=== PATIENT | male | born 1945 | race Hispanic/Latino ===

== ENCOUNTER 2018-02-18 18:39 | Emergency (ER) | payer MEDICARE ==
[~2018-02-18] VITALS: Ht 167.6 cm; Wt 81.6 kg
[~2018-02-18 18:39] MED LIST: Z.0.JALYN 0.5-0.41 E PO
== END 2018-02-18 22:13 | disposition short-term general hospital (02) ==
LOC: ER 18:39
DX: R31.9 Hematuria, unspecified (principal)

== ENCOUNTER 2018-03-27 06:23 | Inpatient (IN) | payer MEDICARE ==
[2018-03-26 16:39] LABS: BASOPHILS # (AUTO) 0.1 (0.0-0.1); BASOPHILS % 0.9 % (0.0-1.0); EOSINOPHILS # (AUTO) 0.3 (0.0-0.4); EOSINOPHILS % 2.8 % (0.0-6.0); HEMOGLOBIN 12.7 g/dL (14.0-18.0); LYMPHOCYTES # (AUTO) 2.2 (1.0-3.2); LYMPHOCYTES % 23.8 % (18.0-39.1); MEAN CORPUSCULAR HEMOGLOBIN 30.8 pg (28-32); MEAN CORPUSCULAR HGB CONC 35.3 g/dL (31-35); MEAN CORPUSCULAR VOLUME 87.4 fL (81-99); MONOCYTES # (AUTO) 0.7 (0.2-0.8); NEUTROPHILS # (AUTO) 5.9 (2.1-6.9); NEUTROPHILS % 64.3 % (38.7-80.0); PLATELET COUNT 201 x10e3/uL (140-360); RED BLOOD COUNT 4.12 x10e6/uL (4.3-5.7); RED CELL DISTRIBUTION WIDTH 13.6 % (11.7-14.4)
[2018-03-26 16:51] LABS: ANION GAP 12.8 mmol/L (8-16); BLOOD UREA NITROGEN 16 mg/dL (7-26); BUN/CREATININE RATIO 15 (6-25); CALCIUM 9.1 mg/dL (8.4-10.2); CARBON DIOXIDE 20 mmol/L (22-29); CHLORIDE 107 mmol/L (98-107); CREATININE, SERUM 1.04 mg/dL (0.72-1.25); EST GLOMERULAR FILTRATION RATE > 60 ML/MIN (60-); GLUCOSE 98 mg/dL (74-118); POTASSIUM 3.8 mmol/L (3.5-5.1); SODIUM 136 mmol/L (136-145)
--- NOTE | 2018-03-26 17:18 | Diagnostic Imaging Report ---
PROCEDURE: Frontal and lateral views of the chest. COMPARISON: Patients [facility], DX, RIBS BILAT W/CXR, 06/25/2015, 12:12. Patients [facility], , CHEST SINGLE (PORTABLE), 05/01/2012, 7:03. INDICATIONS: PRE OP PROSTATE SURGERY FINDINGS: Lines/tubes: None. Lungs: The lungs are well inflated and clear. There is no evidence of pneumonia or pulmonary edema. Pleura: There is no pleural effusion or pneumothorax. Heart and mediastinum: The heart and the mediastinum are normal. Bones: No acute bony abnormality. IMPRESSION: 1. No acute cardiopulmonary abnormalities. Beka Kothari M.D. Dictated by: Beka Kothari M.D. on 03/26/2018 at 17:23 Electronically approved by: Beka Kothari M.D. on 03/26/2018 at 17:23
[~2018-03-27] VITALS: Ht 167.6 cm; Wt 85.3 kg
[~2018-03-27 06:23] MED LIST changes: +ALFUZOSIN HCL10 MG; +FINASTERIDE5 MG PO; +LEVOTHYROXINE50 MCG PO; +LISINOPRIL10 MG PO; +METOPROLOL SUCC25 MG; +METOPROLOL SUCC25 MG PO; +SIMVASTATIN20 MG PO; +TAMSULOSIN HCL0.4 MG PO
[2018-03-27] MEDS ORDERED: GENTAMICIN 80MG/NS 100 ML 200 ML IV ONE (06:48)
[2018-03-27] MEDS ORDERED: CEFTRIAXONE SOD 1 GM VIAL ONE (06:48)
[2018-03-27] MEDS ORDERED: IOPAMIDOL 300MG/ML 50ML INFUS..BTL IV ONE (07:58)
[2018-03-27] MEDS ORDERED: BELLADONNA/OPIUM 60 MG SUPP PR ONE (07:58)
--- NOTE | 2018-03-27 09:35 | Diagnostic Imaging Report ---
PROCEDURE:X-RAY ABDOMEN - KUB COMPARISON:None. INDICATIONS:PREOPERATIVE XRAY FOR PROSTATE SURGERY FINDINGS: There are no dilated loops of bowel to suggest obstruction. There are no masses or abnormal calcifications. There is no evidence of free air. No acute osseous abnormalities are present. Mild degenerative changes of the spine. No obvious lytic or blastic process. CONCLUSION: No acute abdominal abnormality. Nagi Edgar D.O. Dictated by: Nagi Edgar D.O. on 03/27/2018 at 8:40 Electronically approved by: Nagi Edgar D.O. on 03/27/2018 at 8:40
[2018-03-27] MEDS ORDERED: ACETAMINOPHEN 1000 MG/100 ML IV PRN (10:30)
[2018-03-27] MEDS ORDERED: DIPHENHYDRAMINE HCL 25 MG CAP PO PRN (10:30)
[2018-03-27] MEDS ORDERED: NALOXONE HCL INJ 0.4 MG/ML AMP IV PRN (10:30)
[2018-03-27] MEDS ORDERED: DIPHENHYDRAMINE HCL INJ 50 MG/ML VIAL IM PRN (10:30)
[2018-03-27] MEDS ORDERED: MORPHINE SULFATE 1 MG/ML 30ML PCA IV PRN (10:30)
[2018-03-27] MEDS ORDERED: FENTANYL CITRATE/PF 100MCG/2 ML INJ ONE ×2 (10:42→17:41)
[2018-03-27 11:51] LABS: BASOPHILS % 0.3 % (0.0-1.0); EOSINOPHILS # (AUTO) 0.1 (0.0-0.4); EOSINOPHILS % 0.3 % (0.0-6.0); HEMATOCRIT 35.5 % (38.2-49.6); LYMPHOCYTES # (AUTO) 1.3 (1.0-3.2); LYMPHOCYTES % 8.8 % (18.0-39.1); MEAN CORPUSCULAR HEMOGLOBIN 30.7 pg (28-32); MEAN CORPUSCULAR HGB CONC 33.8 g/dL (31-35); MEAN CORPUSCULAR VOLUME 90.8 fL (81-99); MONOCYTES # (AUTO) 0.2 (0.2-0.8); MONOCYTES % 1.4 % (4.4-11.3); NEUTROPHILS # (AUTO) 13.1 (2.1-6.9); NEUTROPHILS % 88.7 % (38.7-80.0); PLATELET COUNT 187 x10e3/uL (140-360); RED BLOOD COUNT 3.91 x10e6/uL (4.3-5.7); RED CELL DISTRIBUTION WIDTH 13.7 % (11.7-14.4)
[2018-03-27] MEDS ORDERED: MORPHINE SULFATE 1 MG/ML 30ML PCA ONE (12:46)
[2018-03-27] MEDS: D5.45%NS/KCL 20MEQ 1,000 ML IV SCH ×3 (14:14→23:06)
[2018-03-27] MEDS: LEVOFLOXACIN 500MG/D5W 100ML 100 ML IV SCH (14:14)
[2018-03-27] MEDS ORDERED: PHENAZOPYRIDINE HCL 100 MG TAB PO PRN (15:30)
[2018-03-27] MEDS ORDERED: ACETAMINOPHEN/CODEINE 300MG - 30MG TAB PO PRN (15:30)
[2018-03-27 15:39] VITALS: BP 101/60
[2018-03-27 16:00] VITALS: BP 95/59
[2018-03-27] MEDS: DOCUSATE SODIUM 100 MG CAP PO SCH (16:38)
[2018-03-27] MEDS ORDERED: ONDANSETRON HCL INJ 2 MG/ML VIAL ONE (17:37)
[2018-03-27] MEDS ORDERED: EPHEDRINE SULFATE INJ 50 MG/10 ML SYR ONE (17:37)
[2018-03-27] MEDS ORDERED: LIDOCAINE HCL 2% LOCAL INJ 5 ML SDV VIAL INJ ONE (17:37)
[2018-03-27] MEDS ORDERED: DEXAMETHASONE SOD PHOS INJ 4 MG/ML VIAL ONE (17:37)
[2018-03-27] MEDS ORDERED: PROPOFOL IV EMULSION 10 MG/ML 20 ML VIAL ONE (17:37)
[2018-03-27] MEDS ORDERED: SEVOFLURANE INHAL SOLN 250 ML PEN BTL ONE (17:37)
[2018-03-27] MEDS ORDERED: MIDAZOLAM HCL 2 MG/2 ML VIAL ONE (17:41)
[2018-03-27 20:00] VITALS: BP 90/54
[2018-03-27 20:05] VITALS: BP 90/54
[2018-03-27] MEDS: TAMSULOSIN HCL 0.4 MG CAP PO SCH (21:12)
[2018-03-27] MEDS: SIMVASTATIN 20 MG TAB PO SCH (21:12)
[2018-03-28] VITALS: BP 87/52
[2018-03-28 04:00] VITALS: BP 87/54
[2018-03-28 04:36] LABS: BASOPHILS # (AUTO) 0.1 (0.0-0.1); BASOPHILS % 0.3 % (0.0-1.0); EOSINOPHILS # (AUTO) 0.2 (0.0-0.4); HEMATOCRIT 26.1 % (38.2-49.6); HEMOGLOBIN 8.9 g/dL (14.0-18.0); LYMPHOCYTES # (AUTO) 1.2 (1.0-3.2); LYMPHOCYTES % 7.5 % (18.0-39.1); MEAN CORPUSCULAR HEMOGLOBIN 30.6 pg (28-32); MEAN CORPUSCULAR HGB CONC 34.1 g/dL (31-35); MEAN CORPUSCULAR VOLUME 89.7 fL (81-99); MONOCYTES # (AUTO) 0.9 (0.2-0.8); MONOCYTES % 5.5 % (4.4-11.3); NEUTROPHILS % 85.2 % (38.7-80.0); PLATELET COUNT 188 x10e3/uL (140-360); RED BLOOD COUNT 2.91 x10e6/uL (4.3-5.7); RED CELL DISTRIBUTION WIDTH 13.9 % (11.7-14.4)
[2018-03-28 05:01] LABS: ANION GAP 10.5 mmol/L (8-16); BLOOD UREA NITROGEN 15 mg/dL (7-26); BUN/CREATININE RATIO 15 (6-25); CARBON DIOXIDE 21 mmol/L (22-29); CHLORIDE 109 mmol/L (98-107); CREATININE, SERUM 1.01 mg/dL (0.72-1.25); EST GLOMERULAR FILTRATION RATE > 60 ML/MIN (60-); GLUCOSE 203 mg/dL (74-118); POTASSIUM 4.5 mmol/L (3.5-5.1); SODIUM 136 mmol/L (136-145)
[2018-03-28] MEDS: LEVOTHYROXINE SODIUM 50 MCG TAB PO SCH (06:20)
[2018-03-28 08:26] VITALS: BP 124/58
[2018-03-28] MEDS ORDERED: LISINOPRIL 10 MG TAB PO SCH (09:00)
[2018-03-28] MEDS: METOPROLOL SUCCINATE 25 MG TAB XL PO SCH (09:00)
[2018-03-28] MEDS ORDERED: LISINOPRIL 20 MG TAB PO SCH (09:00)
[2018-03-28] MEDS: D5.45%NS/KCL 20MEQ 1,000 ML IV SCH ×2 (09:23→15:30)
[2018-03-28] MEDS: FINASTERIDE 5 MG TAB PO SCH (09:23)
[2018-03-28] MEDS: DOCUSATE SODIUM 100 MG CAP PO SCH ×2 (09:23→16:31)
[2018-03-28] MEDS: LEVOFLOXACIN 500MG/D5W 100ML 100 ML IV SCH (09:24)
--- NOTE | 2018-03-28 13:23 | History and Physical ---
CHIEF COMPLAINT: Status post TURP and medical management. HPI: This is a 72-year-old male with known history of hypertension and BPH, comes in for an elective TURP procedure that was performed by Dr. Yin yesterday, 03/27/2018. Patient is currently on continuous bladder irrigation, currently doing well with no other complaints. His labs have been stable. His hemoglobin has dropped to 8.9 today, on admission it was 12.7. Patient was evaluated at bedside on the medical floor, currently doing well with no other complaints. Denies any chest pain, palpitation, nausea or vomiting. He is currently on IV antibiotics. Vital signs stable when I evaluated him. REVIEW OF SYSTEMS: Pertinent positive: Status post TURP. Pertinent negative: Denies any chest pain, palpitations, nausea, vomiting, diarrhea, dysuria, hematuria. frequency, urgency, lightheadedness, dizziness, abdominal pain, headache, shortness of breath, fever, cough, congestion or any other complaints. The rest of the 14-point review of systems have been reviewed with the patient and are negative. ALLERGIES: NO KNOWN DRUG ALLERGIES. HOME MEDICATIONS: Lisinopril 20 mg daily, finasteride 5 mg daily, mcg daily, Toprol XL 25 mg daily, simvastatin 20 mg daily, tamsulosin 0.4 mg daily. PAST MEDICAL HISTORY: He has BPH, hypertension, hypothyroidism. SURGICAL HISTORY: Status post TURP. FAMILY HISTORY: Hypertension and diabetes. SOCIAL HISTORY: No drugs, no alcohol, does not smoke. Good social support. VITAL SIGNS: Temperature is 96.6, pulse 75, respiratory rate is 20, blood pressure 124/58, pulse ox 99% on room air. LAB FINDINGS: White count 16.4, hemoglobin is 8.9, hematocrit is 26.9. Platelets of 188. Chemistry: Sodium 136, potassium 4.5, chloride 109, bicarb 21, anion gap 10, BUN 15, creatinine is 1. Glucose 203. Calcium is 8, magnesium 1.7. IMAGING STUDIES: Chest x-ray negative. Abdominal x-ray negative. MICROBIOLOGY: None. PHYSICAL EXAM GENERAL: Not in acute distress. Alert and oriented times 3. Cooperative with exam. HEENT: Head normocephalic, atraumatic. Eyes, pupils equal, round, and reactive to light bilaterally. Extraocular movements intact bilaterally. NECK: Supple. Good range of motion throughout. No evidence of any erythema or exudates in the posterior pharynx. Has poor dentition. PULMONARY: Clear to auscultation bilaterally. No wheezing, no rales, no rhonchi, no crackles appreciated. CARDIOVASCULAR: Positive S1, S2. No murmurs, rubs or gallops appreciated. ABDOMEN: Soft, nondistended, nontender to palpation. Bowel sounds present. MUSCULOSKELETAL: Strength is 5/5 throughout. No evidence of any muscle strength deficits on examination. No weakness appreciated. NEUROLOGIC: Cranial nerves II through XII grossly intact. No evidence of any neurological deficit on exam. SKIN: Intact. Warm to touch. Good cap refill. PSYCHIATRIC: Normal affect and mood. EXTREMITIES: No edema. Good range of motion throughout. IMPRESSION 1. Benign prostatic hypertrophy status post transurethral resection of prostate performed on 03/27/2018. 2. Hypertension. 3. Leukocytosis. 4. Hypothyroidism. 5. Prophylaxis. 6. Anemia secondary to transurethral resection of prostate. PLAN: At this time, patient will continue with CBIs. Urology is following. Monitor H and H. Currently, hemoglobin is 8.9. We will get a.m. labs. In relation to his blood pressure, current blood pressure was low. We are going to hold the lisinopril but continue the beta tonny because I am not sure if the patient has some history of atrial fibrillation or atrial flutter but there is no report in the HPI nor the patient. His white count is elevated, could be status post TURP, may be reactive. He is currently on IV antibiotics and we will continue with Levaquin for now and monitor closely. We will resume levothyroxine for hypothyroidism. SCDs for now for prophylaxis as he currently has some hematuria from the TURP. Otherwise, we will continue same plan of care and resume same home medications. Job#: [id number]
[2018-03-28 13:40] VITALS: BP 122/58
[2018-03-28 16:29] VITALS: BP 119/57
[2018-03-28 20:00] VITALS: BP 120/70
[2018-03-28] MEDS: TAMSULOSIN HCL 0.4 MG CAP PO SCH (21:13)
[2018-03-28] MEDS: SIMVASTATIN 20 MG TAB PO SCH (21:13)
[2018-03-29] VITALS (8 sets, daily range): BP systolic 114–132; BP diastolic 57–89
[2018-03-29] MEDS: D5.45%NS/KCL 20MEQ 1,000 ML IV SCH ×2 (02:24→08:27)
[2018-03-29 04:29] LABS: BASOPHILS # (AUTO) 0.1 (0.0-0.1); BASOPHILS % 0.7 % (0.0-1.0); EOSINOPHILS # (AUTO) 0.5 (0.0-0.4); EOSINOPHILS % 4.8 % (0.0-6.0); HEMATOCRIT 26.5 % (38.2-49.6); HEMOGLOBIN 8.8 g/dL (14.0-18.0); LYMPHOCYTES # (AUTO) 2.5 (1.0-3.2); LYMPHOCYTES % 22.4 % (18.0-39.1); MEAN CORPUSCULAR HEMOGLOBIN 30.1 pg (28-32); MEAN CORPUSCULAR HGB CONC 33.2 g/dL (31-35); MEAN CORPUSCULAR VOLUME 90.8 fL (81-99); MONOCYTES # (AUTO) 0.7 (0.2-0.8); MONOCYTES % 6.2 % (4.4-11.3); NEUTROPHILS # (AUTO) 7.2 (2.1-6.9); NEUTROPHILS % 65.5 % (38.7-80.0); PLATELET COUNT 178 x10e3/uL (140-360); RED BLOOD COUNT 2.92 x10e6/uL (4.3-5.7); RED CELL DISTRIBUTION WIDTH 14.2 % (11.7-14.4)
[2018-03-29 04:51] LABS: ANION GAP 10.4 mmol/L (8-16); BLOOD UREA NITROGEN 10 mg/dL (7-26); BUN/CREATININE RATIO 11 (6-25); CALCIUM 8.2 mg/dL (8.4-10.2); CARBON DIOXIDE 24 mmol/L (22-29); CHLORIDE 113 mmol/L (98-107); CREATININE, SERUM 0.89 mg/dL (0.72-1.25); EST GLOMERULAR FILTRATION RATE > 60 ML/MIN (60-); GLUCOSE 126 mg/dL (74-118); POTASSIUM 4.4 mmol/L (3.5-5.1); SODIUM 143 mmol/L (136-145)
[2018-03-29] MEDS: LEVOTHYROXINE SODIUM 50 MCG TAB PO SCH (06:49)
[2018-03-29] MEDS: METOPROLOL SUCCINATE 25 MG TAB XL PO SCH (10:28)
[2018-03-29] MEDS: FINASTERIDE 5 MG TAB PO SCH (10:28)
[2018-03-29] MEDS: LEVOFLOXACIN 500MG/D5W 100ML 100 ML IV SCH (10:28)
[2018-03-29] MEDS: DOCUSATE SODIUM 100 MG CAP PO SCH ×2 (10:28→17:59)
[2018-03-29] MEDS: TAMSULOSIN HCL 0.4 MG CAP PO SCH (21:43)
[2018-03-29] MEDS: SIMVASTATIN 20 MG TAB PO SCH (21:43)
[2018-03-30] VITALS (7 sets, daily range): BP systolic 118–135; BP diastolic 64–76
[2018-03-30 06:06] LABS: BASOPHILS # (AUTO) 0.1 (0.0-0.1); BASOPHILS % 0.6 % (0.0-1.0); EOSINOPHILS # (AUTO) 0.5 (0.0-0.4); EOSINOPHILS % 4.7 % (0.0-6.0); HEMATOCRIT 26.4 % (38.2-49.6); HEMOGLOBIN 8.8 g/dL (14.0-18.0); LYMPHOCYTES # (AUTO) 2.3 (1.0-3.2); LYMPHOCYTES % 24.1 % (18.0-39.1); MEAN CORPUSCULAR HEMOGLOBIN 30.4 pg (28-32); MEAN CORPUSCULAR HGB CONC 33.3 g/dL (31-35); MEAN CORPUSCULAR VOLUME 91.3 fL (81-99); MONOCYTES # (AUTO) 0.7 (0.2-0.8); NEUTROPHILS # (AUTO) 6.1 (2.1-6.9); PLATELET COUNT 183 x10e3/uL (140-360); RED BLOOD COUNT 2.89 x10e6/uL (4.3-5.7); RED CELL DISTRIBUTION WIDTH 14.2 % (11.7-14.4)
[2018-03-30 06:23] LABS: ANION GAP 12.3 mmol/L (8-16); BLOOD UREA NITROGEN 11 mg/dL (7-26); BUN/CREATININE RATIO 12 (6-25); CALCIUM 8.6 mg/dL (8.4-10.2); CARBON DIOXIDE 25 mmol/L (22-29); CHLORIDE 107 mmol/L (98-107); CREATININE, SERUM 0.93 mg/dL (0.72-1.25); EST GLOMERULAR FILTRATION RATE > 60 ML/MIN (60-); GLUCOSE 105 mg/dL (74-118); POTASSIUM 4.3 mmol/L (3.5-5.1); SODIUM 140 mmol/L (136-145)
[2018-03-30] MEDS: LEVOTHYROXINE SODIUM 50 MCG TAB PO SCH (06:27)
[2018-03-30] MEDS: FINASTERIDE 5 MG TAB PO SCH (09:30)
[2018-03-30] MEDS: LEVOFLOXACIN 500MG/D5W 100ML 100 ML IV SCH (09:30)
[2018-03-30] MEDS: DOCUSATE SODIUM 100 MG CAP PO SCH ×2 (09:30→17:04)
[2018-03-30] MEDS: METOPROLOL SUCCINATE 25 MG TAB XL PO SCH (09:30)
[2018-03-30] MEDS: SIMVASTATIN 20 MG TAB PO SCH (21:33)
[2018-03-30] MEDS: TAMSULOSIN HCL 0.4 MG CAP PO SCH (21:33)
[2018-03-31] VITALS (7 sets, daily range): BP systolic 121–153; BP diastolic 59–82
[2018-03-31] MEDS: LEVOTHYROXINE SODIUM 50 MCG TAB PO SCH (05:49)
[2018-03-31 05:56] LABS: BASOPHILS # (AUTO) 0.1 (0.0-0.1); BASOPHILS % 0.6 % (0.0-1.0); EOSINOPHILS # (AUTO) 0.5 (0.0-0.4); EOSINOPHILS % 4.8 % (0.0-6.0); HEMATOCRIT 27.8 % (38.2-49.6); HEMOGLOBIN 9.5 g/dL (14.0-18.0); LYMPHOCYTES # (AUTO) 2.1 (1.0-3.2); LYMPHOCYTES % 18.8 % (18.0-39.1); MEAN CORPUSCULAR HEMOGLOBIN 30.6 pg (28-32); MEAN CORPUSCULAR HGB CONC 34.2 g/dL (31-35); MEAN CORPUSCULAR VOLUME 89.7 fL (81-99); MONOCYTES # (AUTO) 0.8 (0.2-0.8); MONOCYTES % 6.9 % (4.4-11.3); NEUTROPHILS # (AUTO) 7.6 (2.1-6.9); NEUTROPHILS % 68.4 % (38.7-80.0); PLATELET COUNT 193 x10e3/uL (140-360); RED CELL DISTRIBUTION WIDTH 14.2 % (11.7-14.4)
[2018-03-31 06:17] LABS: ANION GAP 11.3 mmol/L (8-16); BLOOD UREA NITROGEN 12 mg/dL (7-26); BUN/CREATININE RATIO 12 (6-25); CALCIUM 8.9 mg/dL (8.4-10.2); CARBON DIOXIDE 26 mmol/L (22-29); CHLORIDE 106 mmol/L (98-107); EST GLOMERULAR FILTRATION RATE > 60 ML/MIN (60-); GLUCOSE 113 mg/dL (74-118); POTASSIUM 4.3 mmol/L (3.5-5.1); SODIUM 139 mmol/L (136-145)
[2018-03-31] MEDS: DOCUSATE SODIUM 100 MG CAP PO SCH (09:08)
[2018-03-31] MEDS: FINASTERIDE 5 MG TAB PO SCH (09:08)
[2018-03-31] MEDS: METOPROLOL SUCCINATE 25 MG TAB XL PO SCH (09:08)
[2018-03-31] MEDS: LEVOFLOXACIN 500MG/D5W 100ML 100 ML IV SCH (10:30)
[2018-03-31] MEDS: DOCUSATE SODIUM LIQD 100 MG/10 ML UDC NG SCH (16:59)
[2018-03-31] MEDS: PHENAZOPYRIDINE HCL 100 MG TAB PO SCH (17:10)
[2018-03-31] MEDS: SIMVASTATIN 20 MG TAB PO SCH (21:29)
[2018-03-31] MEDS: TAMSULOSIN HCL 0.4 MG CAP PO SCH (21:29)
[2018-04-01] VITALS: BP_SYST 137; BP_SYST 141; BP_DIAS 63; BP_DIAS 65
[2018-04-01 04:00] VITALS: BP 117/67
[2018-04-01] MEDS: LEVOTHYROXINE SODIUM 50 MCG TAB PO SCH (06:24)
[2018-04-01 07:55] VITALS: BP 164/80
[2018-04-01] MEDS: PHENAZOPYRIDINE HCL 100 MG TAB PO SCH (08:06)
[2018-04-01] MEDS: FINASTERIDE 5 MG TAB PO SCH (08:06)
[2018-04-01] MEDS: DOCUSATE SODIUM LIQD 100 MG/10 ML UDC NG SCH (08:06)
[2018-04-01] MEDS: METOPROLOL SUCCINATE 25 MG TAB XL PO SCH (08:07)
[2018-04-01] MEDS ORDERED: LEVAQUIN500 MG PO (09:50)
[2018-04-01] MEDS ORDERED: COLACE100 MG PO (09:50)
[2018-04-01] MEDS ORDERED: TYLENOL WITH C1 EACH PO (09:50)
[2018-04-01] MEDS ORDERED: PYRIDIUM100 MG PO (09:51)
[2018-04-01] MEDS: LEVOFLOXACIN 500MG/D5W 100ML 100 ML IV SCH (10:30)
[2018-04-01 12:07] VITALS: BP 130/71
--- NOTE | 2018-04-01 12:52 | Discharge Summary ---
DISCHARGE DIAGNOSES 1. Status post transurethral resection of prostate performed on 03/27/[address] Yin, urology. 2. Hypertension. 3. Leukocytosis. 4. Hypothyroidism. 5. Anemia secondary to transurethral resection of prostate. CONSULTANTS: Urology. VITAL SIGNS: Temperature is 97, pulse 81, respiratory rate is 20, blood pressure 164/80. He is saturating on room air. LAB FINDINGS: Show white count 11, hemoglobin 9.5, hematocrit 27, and platelets of 193. Chemistry sodium 139, potassium 4.3, chloride 106, bicarb 26, anion gap of 11, BUN is 12, creatinine is 1. Calcium is 3.9 and magnesium 1.7. IMAGING STUDIES: Abdominal x-ray showed no acute abnormality. Chest x-ray, no acute abnormalities. HOSPITAL COURSE: This is a 72-year-old male who came in to have an elective transurethral resection of prostate that was performed by Dr. Yin, urology, on 03/27/2018. Patient was admitted post procedural and continued on CBIs. Patient had some blood clots post procedure requiring longer length of stay. Patient improved in which the CBI was eventually discontinued and Dee was removed. Patient was urinating well on his own with no more evidence of any bleeding. The patient was cleared by urology for discharge home and he will continue on oral Levaquin and Pyridium as recommended by urology. Patient's vital signs were stable prior to discharge home and his labs were reviewed and stable as well. On discharge his hemoglobin was 9.5 and stable. On the day of discharge vital signs stable, labs and imaging stable. Patient was seen, evaluated and examined thoroughly on the day of discharge and there were no other complaints. Patient verbalized understanding and agrees to plan of care to follow up accordingly as an outpatient with his primary care physician in one week in urology. DISCHARGE MEDICATIONS: See med reconciliation form including Tylenol number 3 one tab every 4 hours as needed for pain, Levaquin 500 mg p.o. q. daily for 7 days, Colace 100 mg p.o. b.i.d. and Pyridium 200 mg p.o. t.i.d. DISPOSITION: To home. CONDITION: Stable. DIET: Heart healthy. FOLLOWUP: With urology in 1 month or earlier if needed and PCP in 1 week. In the event of any worsening symptoms, patient advised to come back to the ED for further evaluation. Discharge summary took greater than 35 minutes. MARKEL VERDE MD Job#: [id number] DG
--- NOTE | 2018-05-14 02:10 | Operative Report ---
DATE OF PROCEDURE: March 27, 2018 PREOPERATIVE DIAGNOSES 1. Obstructive BPH. 2. Gross hematuria. POSTOPERATIVE DIAGNOSES 1. Obstructive BPH. 2. Gross hematuria. OPERATIONS PERFORMED 1. Cystourethroscopy with bilateral ureteral catheterization and retrograde ureteropyelography (separate procedure performed for the gross hematuria). 2. Interpretation of retrograde ureteropyelography. 3. Supervision of fluoroscopy. No radiologist present. 4. Cystourethroscopy with transurethral resection of very large prostate performed as a staged procedure. ANESTHESIA: General. COMPLICATIONS: None. CLINICAL SUMMARY: Giovani Larsen is a 72-year-old man who was diagnosed previously with prostate cancer. The patient has been managed nonoperatively. He underwent transurethral resection of the prostate. He also has had a history of stones. The patient is brought for the above procedures. He is aware of the risks of bleeding, infection, injury to adjacent structures, need for additional procedure and elected to proceed. The patient has had previous photoselective vaporization of the prostate to eliminate his median lobe of the prostate which was huge and occupying the bladder. He also had a previous transurethral resection of the prostate. The patient's prostate is rather large and he has much residual BPH. OPERATIVE PROCEDURE IN DETAIL: Informed consent was verified. Giovani Larsen was properly identified, taken to the operating room, placed on the operating table in supine position. Anesthesia was uneventfully begun. Patient was then carefully and gently repositioned in dorsal lithotomy position with all pressure points well padded. His genitalia were prepared and draped in usual sterile fashion. The 22.5-Lithuanian cystoscope sheath with visual obturator in place was atraumatically inserted into the patient's urethra. It was guided down the unremarkable urethra through wide caliber, not significantly obstructing stricture at the bulbar region into the patient's prostate bed. The prostate bed was significant for visually obstructing BPH with fusion of the lateral lobes at the apex. There was significant amount of prostatic tissue that was collapsed into the prostatic urethral cavity and it was causing visual obstruction. We pierced across this fused prostate bed and panendoscopy of the urinary bladder revealed heavy trabeculations, but no tumors and no stones and no suspicious lesions. An 8-Lithuanian catheter was used to cannulate each ureter and retrograde ureteral pyelograms were performed. Interpretation of retrograde ureterography: Contrast was instilled in retrograde fashion bilaterally. There were no tumors, no stones and no diverticula. The left greater than right fullness of the renal pelves was identified. Unobstructed drainage was observed fluoroscopically. The resectoscope was atraumatically placed. We then utilized the plasma band electrode to perform transurethral resection of the prostate from the bladder neck, but never past the verumontanum. After a rather extensive resection, we obtained hemostasis. The patient underwent resection for well over an hour utilizing the saline TURP system. Hemostasis was obtained. However, the patient had a significant amount of tissue that still remains and at some point in the future should probably return to the operating room for an additional transurethral resection of the prostate, probably utilizing the plasma button electrode. A continuous flow irrigation Dee was placed and the patient was uneventfully reversed from anesthesia and taken to the recovery room in stable condition. There were no complications during the procedure. He tolerated the procedure well. Plans will be to have the patient admitted with continuous bladder irrigation and we will monitor and manage the patient postoperatively as an inpatient. Job#: [id number] JOANNA
--- OUTSIDE RECORDS SUMMARY | 2018-06-05 21:03 | XMS REPORT ---
Author [facility] Address Unknown Phone Unavailable Care Team Providers Care Appeals And Generalist Clerk Name Role Phone JAKI COHN Unavailable Unavailable Problems This patient has no known problems. Allergies, Adverse Reactions, Alerts This patient has no known allergies or adverse reactions. Medications This patient has no known medications. Results Test Description Test Time Test Comments Text Results Atomic Results Result Comments ABDOMEN-1VIEW (KUB) 2018-03-27 08:40:00 [place] [address] Patient Name: AZALEA RUTH MR #: [id number] : 1945 Age/Sex: 72/M Req #: [id number] Adm Physician: Ordered by: JAKI COHN MD Report #: [id number] Location: OR Room/Bed: Procedure: [id number] DX/ABDOMEN-1VIEW (KUB) Exam Date: 03/27/18 Exam Time: 0700 REPORT STATUS: Signed PROCEDURE: X- RAY ABDOMEN - KUB COMPARISON: None. INDICATIONS: PREOPERATIVE XRAY FOR PROSTATE SURGERY FINDINGS: There are no dilated loops of bowel to suggest obstruction. There are no masses or abnormal calcifications. There is no evidence of free air. No acute osseous abnormalities are present. Mild degenerative changes of the spine. No obvious lytic or blastic process. CONCLUSION: No acute abdominal abnormality. Robbin Edgar D.O. Dictated by: Robbin Edgar D.O. on 03/27/2018 at 8:40 Electronically approved by: Robbin Edgar D.O. on 03/27/2018 at 8:40 Dictated By: ROBBIN EDGAR DO [id number] Transcribed By: ARLYN on 03/27/18 0840 COPY TO: JAKI COHN MD CHEST 2 VIEWS 2018-03-26 17:23:00 [place] [address] Patient Name: AZALEA RUTH MR #: [id number] : 1945 Age/Sex: 72/M Req #: [id number] Adm Physician: Ordered by: NIKKI JAVED MD Report #: [id number] Location: OR Room/Bed: Procedure: [id number] DX/CHEST 2 VIEWS Exam Date: 03/26/18 Exam Time: 1615 REPORT STATUS: Signed PROCEDURE: Frontal and lateral views of the chest. COMPARISON: [facility], DX, RIBS BILAT W/CXR, 06/25/2015, 12:12. [facility], DX , CHEST SINGLE (PORTABLE), 05/01/2012, 7:03. INDICATIONS: PRE OP PROSTATE SURGERY FINDINGS: Lines/tubes: None. Lungs: The lungs are well inflated and clear. There is no evidence of pneumonia or pulmonary edema. Pleura: There is no pleural effusion or pneumothorax. Heart and mediastinum: The heart and the mediastinum are normal. Bones: No acute bony abnormality. IMPRESSION: 1. No acute cardiopulmonary abnormalities. Nancy Kothari M.D. Dictated by : Nancy Kothari M.D. on 03/26/2018 at 17:23 Electronically approved by: Nancy Kothari M.D. on 03/26/2018 at 17:23 Dictated By : NANCY KOTHARI MD 22 Transcribed By: ARLYN on 03/26/181722 COPY TO: NIKKI JAVED MD
--- OUTSIDE RECORDS SUMMARY | 2018-06-05 21:03 | XMS REPORT | Continuity of Care Document ---
Author Author [facility] Organization [facility] Address [address] [place] [address] Phone Unavailable Care Team Providers Care Account Receivable Clerk Name Role Phone TAWANA REBOLLEDO MD PCP Insurance Providers Guarantor Giovani Larsen Address [address] [place] [address] Email N Payer [employer] Complete Policy Number [id number] Subscriber's Name ChavaGiovani Relationship 18 Self / Same As Patient Group Number [id number] Effective Date 17 Advance Directives Directive Response Recorded Date/Time Does the patient have an advance directive? No 06/11/15 9:31am If yes, is advance directive on file with [facility]? No 09/08/11 9:10am If not on file with [facility] will patient provide a copy? No 09/08/11 9:10am Do you have a Directive to Physician? No 02/18/18 7:08pm Do you have a Medical Power of Steerer? No 02/18/18 7:08pm Do you have an out of hospital Do Not Resuscitate Order? No 02/18/18 7:08pm Do you have any special needs we should be aware of? No 02/18/18 7:08pm Do you have a support person here with you today? Yes 02/18/18 7:08pm Did patient receive Notice of Privacy Practices? Yes 02/18/18 7:08pm Did patient receive patient rights and responsibilities? Yes 02/18/18 7:08pm Problems No problem information available. Medications Current Home Medications Medication Dose Units Route Directions Days Qty Instructions Start Date Dutasteride/Tamsulosin Hcl (Delia 0.5-0.4 Mg Capsule) 1 Each Cpmp.24hr 1 Each Oral Daily Social History No social history information available. Hospital Discharge Instructions No hospital discharge instruction information available. Plan of Care Discharge Date 02/18/18 10:13pm Disposition REQUEST WITHDRAWN FOR MSE Condition at Discharge Stable Forms Provided Work/School Excuse Prescriptions See Medication Section Functional Status No functional status information available. Allergies, Adverse Reactions, Alerts No known allergies. Immunizations No immunization information available. Vital Signs Acute Vital Signs Vital Response Date/Time Height 5 ft 6 in 02/18/2018 6:46pm Weight 180 lb 02/18/2018 6:46pm Body Mass Index 29.1 kg/m^2 02/18/2018 6:46pm Results No relevant diagnostic test, laboratory data and/or discharge summary information available. Procedures No procedure information available. Encounters Encounter Location Arrival/Admit Date Discharge/Depart Date Attending Provider Departed Emergency Room [facility] 02/18/18 6:39pm 10:13pm BERTHA PARISI MD
== END 2018-04-01 12:30 | disposition home or self-care (01) | DRG 713 ==
LOC: OR 06:23 → PACU V 10:27 → MED/SURG 12:44
PROVIDERS: ADMIT Internal Medicine; ATTEND Internal Medicine
PROC: BT141ZZ Fluoroscopy of Kidneys, Ureters and Bladder using Low Osmolar Contrast (ICD-10-PCS; 2018-03-27)
PROC: 0VB08ZZ Excision of Prostate, Via Natural or Artificial Opening Endoscopic (ICD-10-PCS; principal; 2018-03-27 08:30)
PROC: 0T788ZZ Dilation of Bilateral Ureters, Via Natural or Artificial Opening Endoscopic (ICD-10-PCS; 2018-03-27 08:30)
DX: N40.0 Benign prostatic hyperplasia without lower urinary tract symptoms (principal); D62 Acute posthemorrhagic anemia; N99.820 Postprocedural hemorrhage of a genitourinary system organ or structure following a genitourinary system procedure; E03.9 Hypothyroidism, unspecified; D72.829 Elevated white blood cell count, unspecified; I10 Essential (primary) hypertension
CPT/HCPCS: 36415; 71046; 74018; 74420; 80048; 83735; 85025; 88305; 93005; J0696; J1100; J1580; J1956; J2001; J2250; J2270; J2405

== ENCOUNTER → 2019-05-28 | Outpatient (CLI) | payer MEDICARE, OTHER ==
[~2019-05-28] MED LIST changes: +COLACE100 MG PO; +LEVAQUIN500 MG PO; +PYRIDIUM100 MG PO; +TYLENOL WITH C1 EACH PO
--- NOTE | 2019-05-28 18:30 | Diagnostic Imaging Report ---
RADIOGRAPH(S) OF THE ABDOMEN AND PELVIS, 2 view(s) HISTORY: Pain COMPARISON: None available. FINDINGS: Stool and bowel gas partially limits evaluation. No specific evidence of obstruction or ileus. Nonspecific subtle calcific densities project in the region of the kidneys, 1.3 cm on the right, 0.7 and 0.4 cm on the left. These are only well-seen on one of the views, which raises the possibility of artifacts or bowel contents. IMPRESSION: 1. Possible renal calculi, recommend correlation with follow-up renal ultrasound. 2. Nonobstructive bowel gas pattern. Signed by: Dr. Donovan William D.O., M.M.M. on 05/28/2019 6:26 PM
== END ==
LOC: RAD 17:11
PROVIDERS: ATTEND Urology
DX: N20.0 Calculus of kidney (principal)
CPT/HCPCS: 74018

== ENCOUNTER → 2019-08-05 | Outpatient (CLI) | payer MEDICARE ==
--- NOTE | 2019-08-05 15:07 | Diagnostic Imaging Report ---
EXAM: US RENAL RETROPERITONEAL COMP DATE: 08/05/2019 2:02 PM INDICATION: Calculus of kidney COMPARISON: Abdominal radiograph from 05/28/2019 FINDINGS: The right kidney is normal in size measuring 10.2 x 6.7 x 4.8 cm with cortical thickness of 1.6 cm. Cortical echogenicity is within normal limits. There is no evidence for solid renal mass, hydronephrosis, or shadowing calculi. The left kidney is normal in size measuring 11.0 x 5.6 x 5.3 cm with cortical thickness of 1.5 cm. Cortical echogenicity is within normal limits. There is a 5 mm echogenic focus identified within the mid left kidney which likely represent a nonobstructing stone. There is no evidence for solid renal mass or hydronephrosis. The urinary bladder demonstrates no significant abnormalities. Prevoid volume is 289 cc. Bilateral ureteral jets are noted. The prostate is mildly prominent measuring 4.9 x 4.3 x 4.8 cm. IMPRESSION: 5 mm echogenic focus identified within the left kidney likely representing a nonobstructing stone. No evidence for hydronephrosis/obstructive uropathy. Otherwise, unremarkable sonographic appearance of the kidneys. Signed by: Dr. Ra Morales MD on 08/05/2019 3:03 PM
== END ==
LOC: US 13:52
PROVIDERS: ATTEND Urology
DX: N20.0 Calculus of kidney (principal)
CPT/HCPCS: 76770

== ENCOUNTER → 2019-12-03 | Outpatient (CLI) | payer MEDICARE ==
--- NOTE | 2019-12-03 11:11 | Diagnostic Imaging Report ---
EXAM: ABDOMEN-1VIEW (KUB) DATE: 12/03/2019 10:22 AM INDICATION: Calculus of kidney COMPARISON: CT from 09/12/2019 FINDINGS: Bowel gas pattern appears nonobstructive. Bowel gas partially obscures the renal shadows limiting evaluation. Two subcentimeter calcific densities identified projecting over the inferior pole of left kidney measuring up to 4 mm. No radiographically evident right-sided renal calculus is appreciated. No other abnormal intra-abdominal calcification is appreciated. No acute osseous abnormality identified. IMPRESSION: Two subcentimeter left-sided renal calculi identified. Signed by: Dr. Ra Morales MD on 12/03/2019 11:08 AM
== END ==
LOC: RAD 10:13
PROVIDERS: ATTEND Urology
DX: N20.0 Calculus of kidney (principal)
CPT/HCPCS: 74018

== ENCOUNTER → 2020-07-26 | Outpatient (CLI) | payer MEDICARE ==
--- NOTE | 2020-07-26 18:29 | Diagnostic Imaging Report ---
Abdomen/KUB INDICATION: ^[id number] ^1625 ^CALCULUS OF KIDNEY COMPARISON: 12/03/2019. FINDINGS: Medical Devices: None Bowel: Unremarkable bowel gas pattern. No dilated bowel loops or pneumatosis. Free air: None Abdominal calcifications: Calculus in the lower pole of the left kidney measures 3 mm. Calculus in the proximal lower pole measures 3 mm. These are in similar positions to calculi identified on previous exam. No calcifications over the right renal shadow or along the expected course of the ureters. Organomegaly: None Lung bases: Clear Bones: Sclerotic rounded lesion over the left iliac wing is stable suggestive of bone island. IMPRESSION: Stable left intrarenal calculi. No new renal or ureteral calculi. Signed by: Dr. Yolette Mathews MD on 07/26/2020 6:26 PM
== END ==
LOC: RAD 16:05
PROVIDERS: ATTEND Urology
DX: N20.0 Calculus of kidney (principal)
CPT/HCPCS: 74018

== ENCOUNTER → 2021-05-13 | Outpatient (CLI) | payer MEDICARE | LOC: RAD 10:26 | PROVIDERS: ATTEND Urology | DX: N20.0 Calculus of kidney (principal) | CPT/HCPCS: 74018 ==

== ENCOUNTER → 2021-07-01 | Outpatient (CLI) | payer MEDICARE ==
[~2021-07-01] MED LIST changes: +IOPAMIDOL 370 MG/ML 200 ML INFUS..BTL INJ ONE; +SODIUM CHLORIDE 0.9% 100 ML ONE; +SODIUM CHLORIDE 0.9% 250ML 250 ML ONE
[2021-07-01 16:07] LABS: CREATININE, SERUM 0.84 mg/dL (0.72-1.25)
== END ==
LOC: CT 15:27
PROVIDERS: ATTEND Urology
DX: R31.0 Gross hematuria (principal)
CPT/HCPCS: 36415; 74178; 82565; 84520; J7050 ×2; Q9967

== ENCOUNTER 2021-10-24 02:33 | Emergency (ER) | payer MEDICARE ==
[~2021-10-24] VITALS: Ht 167.6 cm; Wt 81.6 kg
[~2021-10-24 02:33] MED LIST changes: -IOPAMIDOL 370 MG/ML 200 ML INFUS..BTL INJ ONE; -SODIUM CHLORIDE 0.9% 100 ML ONE; -SODIUM CHLORIDE 0.9% 250ML 250 ML ONE
[2021-10-24 03:19] LABS: CLARITY,URINE CLOUDY (CLEAR); COLOR,URINE RED (YELLOW); LEUKOCYTE ESTERASE ,URINE LARGE (NEGATIVE); NITRITE,URINE NEGATIVE (NEGATIVE); PROTEIN,URINE DIPSTICK >=300 (NEGATIVE)
[2021-10-24 03:20] LABS: BACTERIA,URINE MODERATE /HPF; EPITHELIAL CELLS,URINE FEW /LPF; KETONES,URINE 1+ (NEGATIVE); RBC,URINE >50 /HPF (0-5)
== END 2021-10-24 04:10 | disposition home or self-care (01) ==
LOC: ER 02:38
DX: R31.9 Hematuria, unspecified (principal); R33.9 Retention of urine, unspecified; I10 Essential (primary) hypertension; E78.5 Hyperlipidemia, unspecified; E03.9 Hypothyroidism, unspecified; Z85.46 Personal history of malignant neoplasm of prostate; Z87.442 Personal history of urinary calculi
CPT/HCPCS: 51700; 81001; 87086; 99282

== ENCOUNTER 2021-10-24 08:48 | Emergency (ER) | payer MEDICARE ==
[~2021-10-24] VITALS: Ht 167.6 cm; Wt 81.6 kg
[2021-10-24] MEDS ORDERED: SODIUM CHLORIDE 0.9% 1000ML 1,000 ML IV STA (09:02)
[2021-10-24 09:31] LABS: BASOPHILS # (AUTO) 0.1 (0.0-0.1); BASOPHILS % 0.6 % (0.0-1.0); EOSINOPHILS # (AUTO) 0.1 (0.0-0.4); EOSINOPHILS % 0.8 % (0.0-6.0); HEMATOCRIT 36.7 % (38.2-49.6); HEMOGLOBIN 12.7 g/dL (14.0-18.0); LYMPHOCYTES # (AUTO) 1.1 (1.0-3.2); LYMPHOCYTES % 12.6 % (18.0-39.1); MEAN CORPUSCULAR HEMOGLOBIN 30.4 pg (28-32); MEAN CORPUSCULAR HGB CONC 34.6 g/dL (31-35); MEAN CORPUSCULAR VOLUME 87.8 fL (81-99); MONOCYTES # (AUTO) 0.5 (0.2-0.8); NEUTROPHILS # (AUTO) 6.9 (2.1-6.9); NEUTROPHILS % 79.7 % (38.7-80.0); PLATELET COUNT 185 x10e3/uL (140-360); RED BLOOD COUNT 4.18 x10e6/uL (4.3-5.7); RED CELL DISTRIBUTION WIDTH 13.2 % (11.7-14.4)
[2021-10-24 09:46] LABS: INR 0.97; PROTHROMBIN TIME 13.6 seconds (11.9-14.5)
[2021-10-24 09:47] LABS: PARTIAL THROMBOPLASTIN TIME 32.3 seconds (23.8-35.5)
[2021-10-24 10:17] LABS: ALBUMIN 3.7 g/dL (3.5-5.0); ALBUMIN/GLOBULIN RATIO 1.2 (0.8-2.0); ANION GAP 14.9 mmol/L (8-16); CALCIUM 8.6 mg/dL (8.4-10.2); CREATININE, SERUM 0.82 mg/dL (0.72-1.25); POTASSIUM 3.9 mmol/L (3.5-5.1)
[2021-10-24] MEDS ORDERED: SODIUM CHLORIDE 0.9% 500ML 500 ML ONE (10:40)
[2021-10-24] MEDS ORDERED: CEFTRIAXONE 1 GM in SODIUM CHLORIDE 0.9% 50ML 50 ML IV ONE (11:00)
[2021-10-24 12:31] VITALS: BP 133/91
== END 2021-10-24 12:35 | disposition home or self-care (01) ==
LOC: ER 08:53
DX: R31.9 Hematuria, unspecified (principal); R33.9 Retention of urine, unspecified; I10 Essential (primary) hypertension; E78.5 Hyperlipidemia, unspecified; E03.9 Hypothyroidism, unspecified; Z87.442 Personal history of urinary calculi
CPT/HCPCS: 36415; 72194; 74176; 80053; 85025; 85610; 85730; 99284; J0696; J7030; J7040

== ENCOUNTER 2021-11-09 00:57 | Emergency (ER) | payer MEDICARE ==
[~2021-11-09] VITALS: Ht 167.6 cm; Wt 81.6 kg
[2021-11-09] MEDS ORDERED: CIPROFLOXACIN 500 MG TAB PO STA (01:27)
[2021-11-09 01:39] LABS: CLARITY,URINE TURBID (CLEAR); COLOR,URINE RED (YELLOW); KETONES,URINE TRACE (NEGATIVE); LEUKOCYTE ESTERASE ,URINE TRACE (NEGATIVE); NITRITE,URINE NEGATIVE (NEGATIVE); PROTEIN,URINE DIPSTICK >=300 (NEGATIVE); URINE UROBILINOGEN 0.2 mg/dL (0.2 - 1)
[2021-11-09 01:42] LABS: BACTERIA,URINE MODERATE /HPF; EPITHELIAL CELLS,URINE RARE /LPF; RBC,URINE >50 /HPF (0-5)
== END 2021-11-09 02:09 | disposition home or self-care (01) ==
LOC: ER 01:06
DX: Z46.6 Encounter for fitting and adjustment of urinary device (principal); R33.9 Retention of urine, unspecified; N30.91 Cystitis, unspecified with hematuria; I10 Essential (primary) hypertension; E78.5 Hyperlipidemia, unspecified; E03.9 Hypothyroidism, unspecified; Z87.442 Personal history of urinary calculi
CPT/HCPCS: 51700; 81001; 87086; 87186; 99282

== ENCOUNTER 2021-11-09 05:42 | Emergency (ER) | payer MEDICARE ==
[~2021-11-09] VITALS: Ht 167.6 cm; Wt 81.6 kg
== END 2021-11-09 07:43 | disposition home or self-care (01) ==
LOC: ER 06:09
DX: Z46.6 Encounter for fitting and adjustment of urinary device (principal); R33.9 Retention of urine, unspecified; R31.9 Hematuria, unspecified; I10 Essential (primary) hypertension; E78.5 Hyperlipidemia, unspecified; E03.9 Hypothyroidism, unspecified; Z87.442 Personal history of urinary calculi

== ENCOUNTER 2021-11-09 10:24 | Inpatient (IN) | payer MEDICARE ==
[~2021-11-09] VITALS: Ht 167.6 cm; Wt 81.6 kg
[2021-11-09] MEDS: SODIUM CHLORIDE 0.9% 1000ML 1,000 ML IV SCH ×2 (11:20→18:01)
[2021-11-09 11:34] LABS: BASOPHILS % 0.3 % (0.0-1.0); EOSINOPHILS % 0.1 % (0.0-6.0); HEMATOCRIT 33.9 % (38.2-49.6); HEMOGLOBIN 11.7 g/dL (14.0-18.0); LYMPHOCYTES # (AUTO) 1.1 (1.0-3.2); LYMPHOCYTES % 9.2 % (18.0-39.1); MEAN CORPUSCULAR HGB CONC 34.5 g/dL (31-35); MEAN CORPUSCULAR VOLUME 89.9 fL (81-99); MONOCYTES # (AUTO) 0.5 (0.2-0.8); MONOCYTES % 4.1 % (4.4-11.3); NEUTROPHILS # (AUTO) 10.2 (2.1-6.9); PLATELET COUNT 252 x10e3/uL (140-360); RED BLOOD COUNT 3.77 x10e6/uL (4.3-5.7); RED CELL DISTRIBUTION WIDTH 13.7 % (11.7-14.4)
[2021-11-09 11:47] LABS: ALBUMIN 3.9 g/dL (3.5-5.0); ALBUMIN/GLOBULIN RATIO 1.2 (0.8-2.0); ANION GAP 11.1 mmol/L (8-16); CALCIUM 9.1 mg/dL (8.4-10.2); CREATININE, SERUM 1.08 mg/dL (0.72-1.25); POTASSIUM 4.1 mmol/L (3.5-5.1)
[2021-11-09] MEDS ORDERED: SODIUM CHLORIDE 0.9% 500ML 500 ML ONE (13:21)
[2021-11-09 16:11] VITALS: BP 139/75
[2021-11-09 16:15] VITALS: BP 139/75
[2021-11-09 16:16] VITALS: BP 139/75
[2021-11-09 19:49] VITALS: BP 125/70
[2021-11-09 20:18] VITALS: BP 125/70
[2021-11-10] VITALS (7 sets, daily range): BP systolic 108–143; BP diastolic 60–88
[2021-11-10] MEDS: SODIUM CHLORIDE 0.9% 1000ML 1,000 ML IV SCH ×3 (01:48→20:46)
[2021-11-10 06:06] LABS: BASOPHILS # (AUTO) 0.1 (0.0-0.1); BASOPHILS % 0.8 % (0.0-1.0); EOSINOPHILS # (AUTO) 0.1 (0.0-0.4); EOSINOPHILS % 1.9 % (0.0-6.0); HEMATOCRIT 29.9 % (38.2-49.6); HEMOGLOBIN 10.1 g/dL (14.0-18.0); LYMPHOCYTES % 27.7 % (18.0-39.1); MEAN CORPUSCULAR HEMOGLOBIN 30.7 pg (28-32); MEAN CORPUSCULAR HGB CONC 33.8 g/dL (31-35); MEAN CORPUSCULAR VOLUME 90.9 fL (81-99); MONOCYTES # (AUTO) 0.6 (0.2-0.8); MONOCYTES % 8.5 % (4.4-11.3); NEUTROPHILS # (AUTO) 4.4 (2.1-6.9); NEUTROPHILS % 60.8 % (38.7-80.0); PLATELET COUNT 227 x10e3/uL (140-360); RED BLOOD COUNT 3.29 x10e6/uL (4.3-5.7)
[2021-11-10 06:31] LABS: ANION GAP 8.9 mmol/L (8-16); CALCIUM 8.2 mg/dL (8.4-10.2); CREATININE, SERUM 0.8 mg/dL (0.72-1.25); POTASSIUM 3.9 mmol/L (3.5-5.1)
[2021-11-10] MEDS ORDERED: CEFTRIAXONE 1 GM in SODIUM CHLORIDE 0.9% 50ML 50 ML IV SCH (09:00)
[2021-11-10] MEDS ORDERED: PHENAZOPYRIDINE HCL 100 MG TAB PO PRN (11:45)
[2021-11-10] MEDS ORDERED: ACETAMINOPHEN/CODEINE 300MG - 30MG TAB PO PRN (11:45)
[2021-11-10] MEDS ORDERED: DOCUSATE SODIUM 100 MG CAP PO SCH (17:00)
[2021-11-10] MEDS: SIMVASTATIN 20 MG TAB PO SCH (20:45)
[2021-11-10] MEDS: TAMSULOSIN HCL 0.4 MG CAP PO SCH (20:45)
[2021-11-10] MEDS: CEFEPIME 1 GM in SODIUM CHLORIDE 0.9% 50ML 50 ML IV SCH (20:45)
[2021-11-11] VITALS (7 sets, daily range): BP systolic 101–132; BP diastolic 59–82
[2021-11-11 04:59] LABS: BASOPHILS # (AUTO) 0.1 (0.0-0.1); BASOPHILS % 0.8 % (0.0-1.0); EOSINOPHILS # (AUTO) 0.2 (0.0-0.4); EOSINOPHILS % 2.3 % (0.0-6.0); HEMATOCRIT 28.2 % (38.2-49.6); HEMOGLOBIN 9.4 g/dL (14.0-18.0); LYMPHOCYTES # (AUTO) 2.1 (1.0-3.2); LYMPHOCYTES % 24.7 % (18.0-39.1); MEAN CORPUSCULAR HEMOGLOBIN 30.8 pg (28-32); MEAN CORPUSCULAR HGB CONC 33.3 g/dL (31-35); MEAN CORPUSCULAR VOLUME 92.5 fL (81-99); MONOCYTES # (AUTO) 0.7 (0.2-0.8); MONOCYTES % 8.1 % (4.4-11.3); NEUTROPHILS # (AUTO) 5.5 (2.1-6.9); NEUTROPHILS % 63.9 % (38.7-80.0); PLATELET COUNT 201 x10e3/uL (140-360); RED BLOOD COUNT 3.05 x10e6/uL (4.3-5.7); RED CELL DISTRIBUTION WIDTH 14.3 % (11.7-14.4)
[2021-11-11 05:26] LABS: ANION GAP 7.6 mmol/L (8-16); CALCIUM 8.5 mg/dL (8.4-10.2); CREATININE, SERUM 0.78 mg/dL (0.72-1.25); POTASSIUM 3.6 mmol/L (3.5-5.1)
[2021-11-11] MEDS: LEVOTHYROXINE SODIUM 50 MCG TAB PO SCH (05:46)
[2021-11-11] MEDS: DOCUSATE SODIUM 100 MG CAP PO SCH ×2 (09:00→20:55)
[2021-11-11] MEDS: LISINOPRIL 20 MG TAB PO SCH (09:00)
[2021-11-11] MEDS: FINASTERIDE 5 MG TAB PO SCH (09:00)
[2021-11-11] MEDS: METOPROLOL SUCCINATE 25 MG TAB XL PO SCH (10:00)
[2021-11-11] MEDS: CEFEPIME 1 GM in SODIUM CHLORIDE 0.9% 50ML 50 ML IV SCH ×2 (10:00→21:00)
[2021-11-11] MEDS ORDERED: IRON SUCROSE 100 MG in SODIUM CHLORIDE 0.9% 100 ML 100 ML IV SCH (11:00)
[2021-11-11] MEDS: SODIUM CHLORIDE 0.9% 1000ML 1,000 ML IV SCH (11:02)
[2021-11-11] MEDS ORDERED: SEVOFLURANE INHAL SOLN 250 ML PEN BTL ONE (13:07)
[2021-11-11] MEDS ORDERED: PROPOFOL IV EMULSION 10 MG/ML 20 ML VIAL ONE (13:07)
[2021-11-11] MEDS ORDERED: DEXAMETHASONE SOD PHOS INJ 4 MG/ML SDV ONE (13:07)
[2021-11-11] MEDS ORDERED: LIDOCAINE HCL 2% LOCAL INJ 5 ML SDV VIAL INJ ONE (13:07)
[2021-11-11] MEDS ORDERED: POVIDONE IODINE 0.05% 0.05 % ML PO ONE (13:07)
[2021-11-11] MEDS ORDERED: ONDANSETRON HCL INJ 2MG/ML 2ML 2 MG/ML VIAL ONE (13:07)
[2021-11-11] MEDS ORDERED: MIDAZOLAM HCL 2 MG/2 ML VIAL ONE (13:09)
[2021-11-11] MEDS ORDERED: FENTANYL CITRATE/PF 100MCG/2 ML INJ ONE (13:09)
[2021-11-11] MEDS ORDERED: BELLADONNA/OPIUM 30 MG SUPP RC ONE (13:43)
[2021-11-11] MEDS ORDERED: IOPAMIDOL 300MG/ML 50ML INFUS..BTL IV ONE (13:43)
[2021-11-11] MEDS ORDERED: B&O 60MG R/S 60 MG SUPP PR PRN (16:00)
[2021-11-11] MEDS ORDERED: ACETAMINOPHEN/CODEINE 300MG - 30MG TAB PO PRN (16:00)
[2021-11-11] MEDS ORDERED: HYDROMORPHONE 1MG/1ML INJ ONE (16:28)
[2021-11-11 17:49] LABS: BASOPHILS % 0.2 % (0.0-1.0); EOSINOPHILS % 0.1 % (0.0-6.0); HEMATOCRIT 33.1 % (38.2-49.6); HEMOGLOBIN 10.9 g/dL (14.0-18.0); MEAN CORPUSCULAR HGB CONC 32.9 g/dL (31-35); MONOCYTES # (AUTO) 0.2 (0.2-0.8); MONOCYTES % 1.1 % (4.4-11.3); NEUTROPHILS # (AUTO) 15.4 (2.1-6.9); NEUTROPHILS % 91.4 % (38.7-80.0); PLATELET COUNT 213 x10e3/uL (140-360); RED BLOOD COUNT 3.52 x10e6/uL (4.3-5.7); RED CELL DISTRIBUTION WIDTH 14.5 % (11.7-14.4)
[2021-11-11 18:08] LABS: ANION GAP 9.1 mmol/L (8-16); CALCIUM 7.9 mg/dL (8.4-10.2); CREATININE, SERUM 0.78 mg/dL (0.72-1.25); POTASSIUM 4.1 mmol/L (3.5-5.1)
[2021-11-11] MEDS: IRON SUCROSE 100 MG in SODIUM CHLORIDE 0.9% 100 ML 100 ML IV SCH (20:54)
[2021-11-11] MEDS: SIMVASTATIN 20 MG TAB PO SCH (20:55)
[2021-11-11] MEDS: TAMSULOSIN HCL 0.4 MG CAP PO SCH (20:55)
[2021-11-12] VITALS: BP 124/64
[2021-11-12] MEDS: SODIUM CHLORIDE 0.9% 1000ML 1,000 ML IV SCH ×2 (02:47→15:28)
[2021-11-12 04:00] VITALS: BP 114/62
[2021-11-12 04:58] LABS: BASOPHILS # (AUTO) 0.1 (0.0-0.1); BASOPHILS % 0.4 % (0.0-1.0); EOSINOPHILS % 0.1 % (0.0-6.0); HEMATOCRIT 29.1 % (38.2-49.6); HEMOGLOBIN 9.8 g/dL (14.0-18.0); LYMPHOCYTES # (AUTO) 1.3 (1.0-3.2); MEAN CORPUSCULAR HEMOGLOBIN 31.3 pg (28-32); MEAN CORPUSCULAR HGB CONC 33.7 g/dL (31-35); MONOCYTES # (AUTO) 0.8 (0.2-0.8); MONOCYTES % 5.8 % (4.4-11.3); NEUTROPHILS # (AUTO) 11.9 (2.1-6.9); NEUTROPHILS % 84.2 % (38.7-80.0); PLATELET COUNT 197 x10e3/uL (140-360); RED BLOOD COUNT 3.13 x10e6/uL (4.3-5.7); RED CELL DISTRIBUTION WIDTH 14.2 % (11.7-14.4)
[2021-11-12 05:19] LABS: ANION GAP 8.9 mmol/L (8-16); CALCIUM 8.4 mg/dL (8.4-10.2); CREATININE, SERUM 0.82 mg/dL (0.72-1.25); POTASSIUM 3.9 mmol/L (3.5-5.1)
[2021-11-12] MEDS: LEVOTHYROXINE SODIUM 50 MCG TAB PO SCH (06:10)
[2021-11-12 08:00] VITALS: BP 130/73
[2021-11-12] MEDS: CEFEPIME 1 GM in SODIUM CHLORIDE 0.9% 50ML 50 ML IV SCH ×2 (09:00→20:12)
[2021-11-12] MEDS: DOCUSATE SODIUM 100 MG CAP PO SCH ×2 (09:00→20:13)
[2021-11-12] MEDS: METOPROLOL SUCCINATE 25 MG TAB XL PO SCH (09:00)
[2021-11-12] MEDS: FINASTERIDE 5 MG TAB PO SCH (09:00)
[2021-11-12] MEDS: LISINOPRIL 20 MG TAB PO SCH (09:00)
[2021-11-12] MEDS: PHENAZOPYRIDINE HCL 100 MG TAB PO PRN ×2 (09:20→17:03)
[2021-11-12 12:07] VITALS: BP 122/72
[2021-11-12 16:00] VITALS: BP 130/74
[2021-11-12 20:00] VITALS: BP 141/84
[2021-11-12] MEDS: IRON SUCROSE 100 MG in SODIUM CHLORIDE 0.9% 100 ML 100 ML IV SCH (20:12)
[2021-11-12] MEDS: SIMVASTATIN 20 MG TAB PO SCH (20:13)
[2021-11-12] MEDS: TAMSULOSIN HCL 0.4 MG CAP PO SCH (20:16)
[2021-11-13] VITALS (8 sets, daily range): BP systolic 105–137; BP diastolic 67–77
[2021-11-13 05:23] LABS: BASOPHILS # (AUTO) 0.1 (0.0-0.1); BASOPHILS % 0.8 % (0.0-1.0); EOSINOPHILS # (AUTO) 0.2 (0.0-0.4); EOSINOPHILS % 1.8 % (0.0-6.0); HEMATOCRIT 25.5 % (38.2-49.6); HEMOGLOBIN 8.6 g/dL (14.0-18.0); LYMPHOCYTES # (AUTO) 2.1 (1.0-3.2); LYMPHOCYTES % 18.9 % (18.0-39.1); MEAN CORPUSCULAR HEMOGLOBIN 30.7 pg (28-32); MEAN CORPUSCULAR HGB CONC 33.7 g/dL (31-35); MEAN CORPUSCULAR VOLUME 91.1 fL (81-99); MONOCYTES # (AUTO) 0.7 (0.2-0.8); MONOCYTES % 6.4 % (4.4-11.3); NEUTROPHILS # (AUTO) 7.8 (2.1-6.9); NEUTROPHILS % 71.6 % (38.7-80.0); PLATELET COUNT 191 x10e3/uL (140-360); RED CELL DISTRIBUTION WIDTH 14.4 % (11.7-14.4)
[2021-11-13 05:47] LABS: ANION GAP 7.6 mmol/L (8-16); CALCIUM 8.1 mg/dL (8.4-10.2); CREATININE, SERUM 0.84 mg/dL (0.72-1.25); POTASSIUM 3.6 mmol/L (3.5-5.1)
[2021-11-13] MEDS: SODIUM CHLORIDE 0.9% 1000ML 1,000 ML IV SCH ×2 (06:00→21:00)
[2021-11-13] MEDS: LEVOTHYROXINE SODIUM 50 MCG TAB PO SCH (06:01)
[2021-11-13] MEDS: CEFEPIME 1 GM in SODIUM CHLORIDE 0.9% 50ML 50 ML IV SCH ×2 (08:35→22:00)
[2021-11-13] MEDS: DOCUSATE SODIUM 100 MG CAP PO SCH ×2 (08:37→21:00)
[2021-11-13] MEDS: LISINOPRIL 20 MG TAB PO SCH (08:37)
[2021-11-13] MEDS: METOPROLOL SUCCINATE 25 MG TAB XL PO SCH (08:38)
[2021-11-13] MEDS: FINASTERIDE 5 MG TAB PO SCH (08:38)
[2021-11-13] MEDS: TAMSULOSIN HCL 0.4 MG CAP PO SCH (21:00)
[2021-11-13] MEDS: IRON SUCROSE 100 MG in SODIUM CHLORIDE 0.9% 100 ML 100 ML IV SCH (21:00)
[2021-11-13] MEDS: SIMVASTATIN 20 MG TAB PO SCH (21:00)
[2021-11-14 00:29] VITALS: BP 141/82
[2021-11-14 03:36] VITALS: BP 105/66
[2021-11-14] MEDS: LEVOTHYROXINE SODIUM 50 MCG TAB PO SCH (06:04)
[2021-11-14 07:53] VITALS: BP 114/71
[2021-11-14 08:15] VITALS: BP 114/71
[2021-11-14] MEDS: CEFEPIME 1 GM in SODIUM CHLORIDE 0.9% 50ML 50 ML IV SCH (08:16)
[2021-11-14] MEDS: SODIUM CHLORIDE 0.9% 1000ML 1,000 ML IV SCH (08:16)
[2021-11-14] MEDS: LISINOPRIL 20 MG TAB PO SCH (08:19)
[2021-11-14] MEDS: DOCUSATE SODIUM 100 MG CAP PO SCH (08:19)
[2021-11-14] MEDS: FINASTERIDE 5 MG TAB PO SCH (08:19)
[2021-11-14] MEDS: METOPROLOL SUCCINATE 25 MG TAB XL PO SCH (08:19)
[2021-11-14 11:00] VITALS: BP 116/73
[2021-11-14 15:58] VITALS: BP 114/64
[2021-11-14] MEDS ORDERED: LEVOFLOXACIN250 MG PO (17:05)
== END 2021-11-14 17:29 | disposition home or self-care (01) | DRG 713 ==
LOC: ER 10:30 → ERHOLD 10:37 → MED/SURG3 15:48 → OBSVTOIN 11-10 11:39 → MED/SURG 11-10 17:35
PROVIDERS: ADMIT Internal Medicine; ATTEND Internal Medicine
PROC: 0V508ZZ Destruction of Prostate, Via Natural or Artificial Opening Endoscopic (ICD-10-PCS; 2021-11-11)
PROC: BT141ZZ Fluoroscopy of Kidneys, Ureters and Bladder using Low Osmolar Contrast (ICD-10-PCS; 2021-11-11)
PROC: 0TCB8ZZ Extirpation of Matter from Bladder, Via Natural or Artificial Opening Endoscopic (ICD-10-PCS; principal; 2021-11-11 12:30)
DX: N40.1 Benign prostatic hyperplasia with lower urinary tract symptoms (principal); N13.8 Other obstructive and reflux uropathy; N30.01 Acute cystitis with hematuria; D62 Acute posthemorrhagic anemia; C61 Malignant neoplasm of prostate; I10 Essential (primary) hypertension; E03.9 Hypothyroidism, unspecified; Z87.442 Personal history of urinary calculi; E78.5 Hyperlipidemia, unspecified; N32.89 Other specified disorders of bladder; R33.8 Other retention of urine; N39.41 Urge incontinence; E66.9 Obesity, unspecified; Z68.29 Body mass index [BMI] 29.0-29.9, adult; R39.14 Feeling of incomplete bladder emptying; N32.81 Overactive bladder; N28.1 Cyst of kidney, acquired; D64.9 Anemia, unspecified; Z20.822 Contact with and (suspected) exposure to COVID-19; N32.0 Bladder-neck obstruction
CPT/HCPCS: 36415; 51703; 72194; 74420; 80048; 80053; 83735; 85025; 94799; 99284; C1758; G0378; J0692; J0696; J1100; J1170; J1756; J2001; J2250; J2405; J3010; J7030; J7040; U0002

== ENCOUNTER → 2023-12-27 | Outpatient (REF) | payer MEDICARE ==
[~2023-12-27] MED LIST changes: +LEVOFLOXACIN250 MG PO
== END ==
LOC: RAD 08:33
PROVIDERS: ATTEND Urology
DX: N20.0 Calculus of kidney (principal)
CPT/HCPCS: 74018